=== PATIENT | male | born 1980 | race Caucasian/White ===

== ENCOUNTER 2023-07-04 16:54 | Emergency (ER) | payer BC, SELFPAY ==
[2023-07-04 17:14] VITALS: BP 125/49
[2023-07-04 17:44] LABS: % Basophils 0.9 % (0-2); % Eosinophils 4.9 % (0-6); % Immature Granulocytes 0.4 % (0-0.5); % Lymphocytes 17.4 % (20.5-51.1); % Monocytes 9.7 % (1.7-9.3); % Neutrophils 66.7 % (42.2-75.2); Absolute Basophils 0.1 10^3/uL (0-0.2); Absolute Eosinophils 0.4 10^3/uL (0-0.7); Absolute Lymphocytes 1.6 10^3/uL (1.2-3.4); Absolute Monocytes 0.9 10^3/uL (0.1-0.6); Hemoglobin 13.6 g/dL (13.0-18.0); Mean Corp Hgb Conc. 35.8 g/dL (33.0-37.0); Mean Corpuscular Hgb 29.8 pg (27.0-31.0); Mean Corpuscular Volume 83.3 fL (80.0-94.0); Mean Platelet Volume 8.9 fL (7.4-10.4); Nucleated Red Blood Cells % 0 % (-); Platelet Count 281 10^3/uL (130-400); Red Blood Cell Count 4.56 10^6/uL (4.70-6.10)
[2023-07-04 17:56] LABS: Lactic Acid 1.7 mmol/L (0.7-2.0)
[2023-07-04 17:58] LABS: ALT (SGPT) 23 U/L (0-50); AST (SGOT) 22 U/L (17-59); Albumin 3.9 g/dl (3.5-5.0); Alkaline Phosphatase 107 U/L (38-126); Blood Urea Nitrogen 14 mg/dl (9-20); Calcium 9.4 mg/dl (8.4-10.2); Carbon Dioxide 31 mmol/L (22-30); Chloride 94 mmol/L (98-107); Glucose 421 mg/dl (70-99); Potassium 4.3 mmol/L (3.5-5.1); Sodium 132 mmol/L (135-145); Total Bilirubin 0.9 mg/dl (0.2-1.3); eGFR > 60.00
--- NOTE | 2023-07-04 19:06 | ED.GENMED ---
History of Present Illness
General
Chief Complaint: Skin Problem
Time Seen by Provider: 07/04/23 18:02
Travel History
Have you had any contact with someone who has COVID-19?: No
Do you have any symptoms of coronavirus? Fever > 100 degrees, chills, cough, shortness of breath, sore throat, loss of taste or smell, muscle aches, or headache?: No
History of Present Illness
History of Present Illness:
43-year-old male presents to the emergency department for evaluation of firm skin cyst to the inferior occiput and upper neck ongoing over the course of the past 3 to 4 days. He feels as though he was stung by a wasp prior to the swelling
developing. Denies any associated fevers or chills. Was seen in urgent care 2 days ago and started on Augmentin however symptoms are worsening. Denies any chest pain or shortness of breath.
Review of Systems
Review of Systems
Allergies reviewed?: Yes
All Other Systems: ROS reviewed and negative except as documented in HPI and ROS
Phy Exam
Physical Exam
Physical Exam:
GEN: Well appearing, NAD, WDWN
HEENT: Oral mucosa moist, no scleral icterus
Cardiac: Regular rate
Lung: No respiratory distress, no tachypnea
MSK: No gross deformity or injuries
Skin: Good color. Large not erythematous mass to the inferior occiput crossing the midline that measures approximately 14 cm x 6 cm. No purulent discharge, mildly tender to palpation. There is some erythema extending down the posterior neck
toward the lower cervical vertebrae
Neuro: AO x3, moves all extremities freely
Psych: Calm, cooperative
Course
Orders/Labs/Results
Orders:
Orders
07/04/23 17:23
CBC/With Diff [Complete Blood Count/With Diff] Urgent
CMP [Comprehensive Metabolic Panel] Urgent
Glycohemoglobin (HgbA1c) Urgent
Lactic Acid Q4H
Comment: ON ICE, CANCEL 2ND ORDER IF FIRST LACTIC ACID LEVEL <2
Blood Culture Q30M
MICKI Source: Blood/Venous
Specimen Description:
Comment: FROM 2 SEPARATE SITES
07/04/23 18:37
Add On- LAB Urgent
Tests Added?: HGBA1c
07/04/23 19:18
Wound Culture [Wound/Abscess/Other Culture] Urgent
MICKI Source: Scalp
Specimen Description:
Date Specimen was Collected: 07/04/23
Time Specimen was Collected: 19:13
Abnormal Lab Results
07/04/23
17:23
RBC 4.56 L 10^6/uL
(4.70-6.10)
Hct 38.0 L %
(39.0-52.0)
Absolute Monos (auto) 0.9 H 10^3/uL
(0.1-0.6)
Lymphocytes % 17.4 L %
(20.5-51.1)
Monocytes % 9.7 H %
(1.7-9.3)
Sodium 132 L mmol/L
(135-145)
Chloride 94 L mmol/L
(98-107)
Carbon Dioxide 31 H mmol/L
(22-30)
Creatinine 0.6 L mg/dL
(0.7-1.3)
Glucose 421 H mg/dl
(70-99)
07/04/23 17:23
07/04/23 17:23
Vital Signs
Initial and Last Documented VS:
Initial Vital Signs
Temp Pulse Resp BP Pulse Ox
98.2 F 100 22 125/49 100
07/04/23 17:14 07/04/23 17:14 07/04/23 17:14 07/04/23 17:14 07/04/23 17:14
Last Documented Vital Signs
Temp Pulse Resp BP Pulse Ox
98.2 F 100 16 150/80 98
07/04/23 17:14 07/04/23 19:29 07/04/23 19:29 07/04/23 19:29 07/04/23 19:29
MDM/Problems Addressed
MDM/Problems Addressed:
Clinically this is most suspicious for hidradenitis. Patient does have numerous pustular lesions overlying the large mass. Bedside ultrasound performed by myself reveals no obvious fluid pockets, I did attempt to aspirate the mass with an 18-gauge
needle however yielded less than 1 cc of pus. Purulent discharge will be sent for culture. Will switch the patient from Augmentin to Bactrim given the likelihood for MRSA. He is also noted to be hyperglycemic, on repeat evaluation does note some
polydipsia and polyuria over the past month. Will start him on metformin, hemoglobin A1c added to labs for outpatient follow-up purposes. Next follow-up with primary care physician within 1 week to discuss glucose control, general surgery
follow-up for hidradenitis
*Critical Care Note
Total Time (30-74mins, 75-104mins- exclusive of procedures): Not Applicable
ED Attending Note
-
Portions of this chart may have been created with voice recognition software.� Occasional wrong word or��sound alike� substitutions may have occurred due to the inherent limitations of voice recognition software.
Discharge Plan
Departure
Patient Disposition: Home (Routine Discharge)
Date of Disposition: 07/04/23
Time of Disposition: 19:06
Patient with high blood pressure during this ER visit?: No
Discharge Problem:
Hidradenitis suppurativa, Acute hyperglycemia
Instructions: Hidradenitis suppurativa, High Blood Sugar, Adult (DC)
Prescriptions:
New
metformin 500 mg tablet
500 mg PO BID Qty: 60 0RF
sulfamethoxazole-trimethoprim [Bactrim DS] 800-160 mg tablet
1 tab PO BID Qty: 20 0RF
Referrals:
Caio Laura MD [Active] -
Activity Restrictions/Additional Instructions:
See your primary doctor in 1 week for blood sugar follow up
Follow up with surgery regarding the head swelling
Interventions
Interventions:
*Risk Screen - Suicide Last Done: 07/04/23 17:14
*General Assessment Last Done: 07/04/23 17:14
*Neglect/Abuse Screening Last Done: 07/04/23 17:14
ED- Fall Risk Assessment Last Done: 07/04/23 18:39
*ED COVID-19 Vaccine History Last Done: 07/04/23 17:14
*Nursing Disposition Last Done: 07/04/23 19:30
ED-Skin Assessment Last Done: 07/04/23 18:41
Discharge Date and Time
Discharge Date/Time: 07/04/23 19:30
[2023-07-04 19:29] VITALS: BP 150/80
[2023-07-05 09:00] LABS: Glycohemoglobin (HgbA1c) 12.5 % (4.0-5.6)
== END 2023-07-04 19:30 | disposition home or self-care (01) ==
LOC: EMR 16:54
PROVIDERS: EMERGENCY PHYSICIAN Emergency Medicine; FAMILY PHYSICIAN Nurse Practitioner Family
DX: L73.2 Hidradenitis suppurativa (principal); E11.65 Type 2 diabetes mellitus with hyperglycemia
CPT/HCPCS: 99283; 80053; 83036; 83605; 85025; 87040; 87070; 87147; 87186; 87205